=== PATIENT | female | born 1970 | race Caucasian/White ===

== ENCOUNTER 2022-03-04 08:38 | Outpatient (CLI) | payer BC, SELFPAY | END 2022-03-04 08:39 | disposition home or self-care (01) | LOC: FRMREF 03-11 10:06 | PROVIDERS: PCP Emergency Medicine; Visit Provider Emergency Medicine | DX: Z00.00 Encounter for general adult medical examination without abnormal findings (principal); I10 Essential (primary) hypertension; F41.9 Anxiety disorder, unspecified | CPT/HCPCS: 80048; 80061 ==

== ENCOUNTER 2024-07-02 07:59 | Outpatient (CLI) | payer BC, SELFPAY ==
--- NOTE | 2024-07-02 08:15 | CRLHL7_ITS ---
For Patients: As a result of the Cures Act, medical imaging exams and procedure reports are released immediately into your electronic medical record. You may view this report before your referring provider. If you have questions, please contact your health care provider. INDICATION: Thyroid nodules COMPARISON: 11/22/2022 TECHNIQUE: Mckeon scale and color Doppler images were acquired of the thyroid gland. FINDINGS: Solid and cystic nodule right thyroid lobe measures 15 x 11 x 13 millimeters, TR 3, previously measuring 12 x 8 x 12 millimeters. Additional solid and cystic nodule right thyroid lobe measures 7 x 4 x 7 millimeters, TR 3, previously measuring 5 x 3 x 4 millimeters. Isthmus measures 11 millimeters. Solid and cystic nodule left thyroid lobe measures 13 x 8 x 15 millimeters, TR 3, previously measuring 16 x 7 x 15 millimeters. Additional solid and cystic TR 3 nodule left thyroid lobe measures 9 x 7 x 9 millimeters, previously measuring 7 x 7 x 9 millimeters. Cystic nodule left thyroid lobe measures 7 x 6 x 8 millimeters, previously measuring 7 x 4 x 5 millimeters, TR 2. The right lobe measures 6.1 x 2.2 x 2.3 cm and the left lobe measures 6.6 x 2.2 x 2.1 cm in size. There are no suspicious masses or nodules. The color Doppler images demonstrate normal vascularity. There is no evidence of cervical lymphadenopathy or parathyroid mass. IMPRESSION: Similar morphology and size of bilateral thyroid nodules. FNA not indicated. Dictated by Kumar Fung MD @ 07/02/2024 1:23:00 PM (Electronically Signed)
== END 2024-07-02 08:00 | disposition home or self-care (01) ==
PROVIDERS: PCP Family Medicine; Visit Provider Family Medicine
DX: E04.1 Nontoxic single thyroid nodule (principal)
CPT/HCPCS: 76536